=== PATIENT | male | born 1985 | race Caucasian/White ===

== ENCOUNTER 2019-09-01 22:34 | Emergency (ER) | payer BC, OTHER ==
[~2019-09-01] VITALS: Ht 180.3 cm; Wt 142.9 kg
[~2019-09-01 22:34] MED LIST: ALEVE220 MG PO; NEXIUM20 M1 PO
[2019-09-01 22:54] LABS: INFLUENZAE A&B ANTIGEN (RAPID) NEGATIVE (NEGATIVE); STREPTOCOCCUS GRP A ANTIGEN NEGATIVE (NEGATIVE)
--- NOTE | 2019-09-01 23:48 | Diagnostic Imaging Report ---
EXAMINATION: CHEST 2 VIEWS INDICATION: Cough COMPARISON: None FINDINGS: TUBES and LINES: None. LUNGS: Lungs are well inflated. Lungs are clear. There is no evidence of pneumonia or pulmonary edema. Mild pulmonary vascular prominence. PLEURA: No pleural effusion or pneumothorax. HEART AND MEDIASTINUM: The cardiomediastinal silhouette is unremarkable. BONES AND SOFT TISSUES: No acute osseous lesion. Soft tissues are unremarkable. UPPER ABDOMEN: No free air under the diaphragm. IMPRESSION: Central pulmonary vascular congestion. Signed by: Gerber Foster DO on 09/01/2019 11:45 PM
[2019-09-01 23:57] VITALS: BP 157/78
--- OUTSIDE RECORDS SUMMARY | 2019-09-11 10:42 | XMS REPORT ---
Author Author [facility] Address Unknown Phone Unavailable Care Team Providers Care Software Applications Engineer Name Role Phone Justino KEN Unavailable Unavailable Payers Payer Name Policy Type Policy Number Effective Date Expiration Date Problems This patient has no known problems. Allergies, Adverse Reactions, Alerts Allergy Name Allergy Type Status Severity Reaction(s) Onset Date Inactive Date Treating Clinician Comments No Known Allergies DA Active U 2013-01-30 00:00:00 Medications This patient has no known medications. Results Test Description Test Time Test Comments Text Results Atomic Results Result Comments CHEST 2 VIEWS 2019-09-01 23:44:00 [place] [address] Patient Name: PAUL WIGGINS MR #: [id number] : 1985 Age/Sex: 33/M Req #: [id number] Adm Physician: Ordered by: NURIS KEN MD Report #: [id number] Location: ER Room/Bed: Procedure: [id number] DX/CHEST 2 VIEWS Exam Date: 09/01/19 Exam Time: 2300 REPORT STATUS: Signed EXAMINATION: CHEST 2 VIEWS INDICATION: Cough COMPARISON: None FINDINGS: TUBES and LINES: None. LUNGS: Lungs are well inflated. Lungs are clear. There is no evidence of pneumonia or pulmonary edema. Mild pulmonary vascular prominence. PLEURA: No pleural effusion or pneumothorax. HEART AND MEDIASTINUM: The cardiomediastinal silhouette is unremarkable. BONES AND SOFT TISSUES: No acute osseous lesion. Soft tissues are unremarkable. UPPER ABDOMEN: No free air under the diaphragm. IMPRESSION: Central pulmonary vascular congestion. Signed by: Gerber Foster DO on 09/01/2019 11:45 PM Dictated By: GERBER FOSTER DO 44 Transcribed By: PERLITA on 09/01/192344 COPY TO: NURIS KEN MD URINALYSIS COMPLETE 2019-01-12 14:16:00 UA COLOR (test code=COLU) YELLOW YEL/STRAW UA APPEARANCE (test code=APPU) CLEAR CLEAR UA GLUCOSE DIPSTICK (test code=DGLUU) NEGATIVE NEGATIVE UA BILIRUBIN DIPSTICK (test code=BILU) NEGATIVE NEGATIVE UA KETONE DIPSTICK (test code=KETU) NEGATIVE NEGATIVE UA SPECIFIC GRAVITY (test code=SGU) 1.019 1.005-1.030 UA BLOOD DIPSTICK (test code=CUCO) NEGATIVE NEGATIVE UA PH DIPSTICK (test code=SILVIA) 6.0 5.0-7.0 UA PROTEIN DIPSTICK (test code=PROU) NEGATIVE NEGATIVE UA UROBILINIOGEN DIPSTICK (test code=URO) 0.2 mg/dL 0.2-1.0 UA NITRITE DIPSTICK (test code=FANNY) NEGATIVE NEGATIVE UA LEUKOCYTE ESTERASE DIPSTICK (test code=LEUU) NEGATIVE NEGATIVE UA WBC (test code=WBCU) 0-3 WBC/HPF 0-3 UA RBC (test code=RBCU) 0-3 RBC/HPF 0-3 UA BACTERIA (test code=BACU) NONE SEEN /HPF NONE SEEN UA SQUAMOUS CELLS (test code=SQU) 0-5 /HPF NONE SEEN - CT L-SPINE W/O [id number] 14:14:00 Name: PAUL WIGGINS [facility] : 1985 Age/S: 33 / M [address] [place] [address] Unit #: [id number] Loc: [place] [address] Phys: Franko Mcmanus MD Acct: [id number] Dis Date: Status: REG ER PHONE #: [phone] Exam Date: 01/12/2019 1343 FAX #: [phone] Reason: lower back pain EXAMS: CPT CODE: [id number] CT L-SPINE W/O CONTRAST 43156 Study: - CT L-SPINE W/O CONTRAST 01/12/2019 1:08 PM Clinical Indication: lower back pain Comparison: None Technique: Multiple contiguous noncontrast CT images were obtained through the lumbar spine. Coronal and sagittal reconstructions were prepared. DOSE: CT imaging performed at this location utilizes radiation dose optimization technique which includes one or more of the followin) Automated exposure control; 2) Adjustment of the mA and/or kV according to patient's size; 3) Use of iterative reconstruction techniques. DLP (mGy-cm): 1157 FINDINGS: ALIGNMENT AND GENERAL ASSESSMENT: Alignment is normal without subluxation. No significant spondylosis or facet joint arthrosis. Schmorl's nodes are seen at the superior and inferior T12, L1, and L4 vertebral body endplates No acute fracture or dislocation is appreciated. DISK SPACES: No significant spinal canal narrowing or neural foraminal narrowing. PARASPINAL SOFT TISSUES: The paraspinal soft tissues are normal. IMPRESSION: No acute fracture or dislocation. SL: [id number] at 1414 Reported and signed by: Jaime Villagomez M.D. PAGE 1 Signed Report (CONTINUED) Name: PAUL WIGGINS [facility] : 1985 Age/S: 33 / M [address] [place] [address] Bl Unit #: [id number] Loc: [place] [address] Phys: Franko Mcmanus MD Acct: [id number] Dis Date: Status: REG ER PHONE #: [phone] Exam Date: 01/12/2019 1343 FAX #: [phone] Reason: lower back pain EXAMS: CPT CODE: [id number] CT L-SPINE W/O CONTRAST 81100 <Continued> CC: Franko Mcmanus MD Technologist:Jean Silva RT(R) CTDI: DLP: Trnscb Date/Time: 01/12/2019 (1414) [email or web address] Orig Print D/T: S: 01/12/2019 (1417) CTDI: DLP: PAGE 2 Signed Report
== END 2019-09-02 00:10 | disposition home or self-care (01) ==
LOC: ER 22:34
DX: J20.9 Acute bronchitis, unspecified (principal); B37.9 Candidiasis, unspecified; F17.200 Nicotine dependence, unspecified, uncomplicated
CPT/HCPCS: 71046; 83518; 87070; 87400; 99283